=== PATIENT | male | born 1940 | race Two or more races ===

== ENCOUNTER 2021-12-31 14:15 | Emergency (ER) | payer MEDICARE, OTHER ==
[~2021-12-31] VITALS: Ht 157.5 cm; Wt 56.7 kg
--- NOTE | 2021-12-31 14:40 | NUR ---
RECEVED PT 81 YRS MALE WAKING IN [facility] BY SON FOR DEMETION AND FOR EVALUETION
--- NOTE | 2021-12-31 15:45 | NUR ---
BLOOD DROW BY LAB TACH
--- NOTE | 2021-12-31 16:00 | NUR ---
SON AT BED SIDE
[2021-12-31] MEDS ORDERED: MEMA10TA56 PO (16:13)
[2021-12-31] MEDS ORDERED: DIGO125T PO (16:13)
[2021-12-31] MEDS ORDERED: LEVA15HF6 INH (16:13)
[2021-12-31] MEDS ORDERED: FLUT16SP16 BNOSTRILS (16:13)
[2021-12-31] MEDS ORDERED: ATOR20TA PO (16:13)
[2021-12-31] MEDS ORDERED: METF-442 PO (16:13)
[2021-12-31] MEDS ORDERED: METO25TA4 PO (16:13)
[2021-12-31 16:19] LABS: BILIRUBIN,URINE NEGATIVE (NEGATIVE); COLOR,URINE YELLOW (YELLOW); LEUKOCYTE ESTERASE ,URINE NEGATIVE (NEGATIVE); NITRITE, URINE NEGATIVE (NEGATIVE); PH,URINE 5.5 (5.0-8.0); PROTEIN,URINE NEGATIVE (NEGATIVE); UGLUCOSE >=1000 mg/dL (NEGATIVE); UROBILINOGEN,URINE 0.2 EU/dL (0.2)
[2021-12-31 16:24] LABS: BACTERIA,URINE None seen /HPF (None Seen); MUCUS,URINE Few /LPF (None Seen); RBC,URINE 51-80 /HPF (0-2); SQUAMOUS EPITHELIAL CELL,UR 0-2 /HPF (None Seen); WBC,URINE 0-2 /HPF (0-3)
--- NOTE | 2021-12-31 16:30 | NUR ---
ERUM SENT TO LAB
[2021-12-31 16:44] LABS: BASOPHILS % (AUTO) 0.6 % (0.0-2.0); EOSINOPHILS % (AUTO) 2.2 % (0.0-6.0); HEMATOCRIT 38 % (39-51); LYMPHOCYTES # (AUTO) 0.7 K/uL (0.8-4.8); LYMPHOCYTES % (AUTO) 12.3 % (20.0-44.0); MEAN CORPUSCULAR HGB CONC 34 g/dl (31.0-36.0); MEAN CORPUSCULAR VOLUME 87 fL (80-96); MONOCYTES # (AUTO) 0.5 K/uL (0.1-1.30); MONOCYTES % (AUTO) 8.4 % (2.0-12.0); NEUTROPHILS # (AUTO) 4.6 K/uL (1.8-8.9); NEUTROPHILS % (AUTO) 76.5 % (43.0-81.0); PLATELET COUNT (AUTO) 205 K/uL (150-450); RED BLOOD CELL COUNT(AUTO) 4.41 MIL/uL (4.5-6.0)
[2021-12-31 17:13] LABS: ALANINE AMINOTRANSFERASE 15 U/L (12-78); ALBUMIN 3.8 g/dL (3.4-5.0); ALKALINE PHOSPHATASE 60 U/L (46-116); ASPARTATE AMINOTRANSFERASE 7 U/L (15-37); BILIRUBIN,DIRECT 0.2 mg/dL (0.0-0.2); BILIRUBIN,TOTAL 0.8 mg/dL (0.2-1.0); CALCIUM, SERUM 8.9 mg/dL (8.5-10.1); CARBON DIOXIDE 28 mmol/L (21-32); CHLORIDE 103 mmol/L (98-107); GLUCOSE 272 mg/dL (74-106); SODIUM SERUM 138 mmol/L (136-145); TOTAL PROTEIN, SERUM 7.1 g/dL (6.4-8.2); UREA NITROGEN, BLOOD 20 mg/dL (7-18)
[2021-12-31 17:17] LABS: ACETAMINOPHEN < 10 ug/ml (10-30); ALCOHOL, BLOOD < 3 mg/dL (0-0)
--- NOTE | 2021-12-31 18:00 | NUR ---
JAMES FOR [employer] WORKER TO BE SEE
--- NOTE | 2021-12-31 19:19 | NUR ---
CALLED CHELO SÁNCHEZ. LEFT A VOICEMAIL.
--- NOTE | 2021-12-31 19:28 | NUR ---
SPOKE TO CHELO SÁNCHEZ. STATED SHE IS ON HER WAY TO SEE THE PATIENT. NO ETA GIVEN.
--- NOTE | 2021-12-31 19:30 | NUR ---
HAND OFF TO JUANITA SORIANO
--- NOTE | 2021-12-31 19:42 | NUR ---
COVID SWAB COLLECTED AND SENT TO LAB
--- NOTE | 2021-12-31 20:25 | NUR ---
RAMON SÁNCHEZ CRISIS TEAM AT PT'S BEDSIDE
--- NOTE | 2021-12-31 21:33 | NUR ---
Patient discharged to home in stable condition. Written and verbal after care instructions given. Patient verbalizes understanding of instruction. PT ambulatory with a steady gait
[2021-12-31 21:37] VITALS: BP 126/74
== END 2021-12-31 21:35 | disposition home or self-care (01) ==
LOC: ER 14:33
DX: F03.91 Unspecified dementia, unspecified severity, with behavioral disturbance (principal); I48.91 Unspecified atrial fibrillation; Z95.0 Presence of cardiac pacemaker; Z86.73 Personal history of transient ischemic attack (TIA), and cerebral infarction without residual deficits; Z79.899 Other long term (current) drug therapy; E11.9 Type 2 diabetes mellitus without complications; Z20.822 Contact with and (suspected) exposure to COVID-19
CPT/HCPCS: 36415; 71045-TC; 80048-TC; 80076-TC; 81001; 85025-TC; C9803; G0480